=== PATIENT | female | born 1985 | race Caucasian/White ===

== ENCOUNTER 2018-04-23 02:17 | Emergency (ER) | payer BC, SELFPAY ==
[2018-04-23 02:19] VITALS: BP 157/97; PULSE 132; RESP 20; TEMP 36.5; O2SAT 99
[2018-04-23] MEDS: Ibuprofen 600 MG TAB (02:34)
[2018-04-23] MEDS: Acetaminophen 500 MG TAB 1000 MG PO (02:35)
[2018-04-23 02:42] VITALS: PULSE 107
--- NOTE | 2018-04-23 02:51 | W.ED.GENAD ---
Discharge Plan Disposition Patient Disposition: HOME Condition: Good Discharge Details Chief Complaint: Sorethroat Clinical Impression: Acute herpangina Primary Care Provider: Marcos Gunn ED Provider: Gary Hull Home Meds and New Rx's Prescriptions: Continued loratadine 10 mg Tablet 10 mg PO DAILY RF: 0 Discontinued lidocaine HCl [Lidocaine Viscous] 2 % Solution 15 ml MUCOUS MEMBRANE BID-QID PRNRF: 0 Discharge Instructions Additional Instructions: Please stop taking the viscous lidocaine. Please use the Hurricaine spray only as absolutely needed. Maximum would be a short spray every hour as needed for taking pills and drinking fluid. Please drink 8-10 cups of water per day. Please take 1000 mg of Tylenol every 6 hours and 800 mg of ibuprofen every 6 hours if you notice any worsening of your symptoms, or any new symptoms such as vomiting, diarrhea, fever, chills, shortness of breath, chest pain, numbness, weakness, or fainting , please return immediately to the emergency department for reevaluation. Please follow up with your primary care provider as soon as possible for reassessment and reevaluation. As always, it was a pleasure participating in your medical care today. Referrals: Marcos Gunn [Primary Care Provider] - Medical Decision Making This is a pleasant 33-year-old with no significant past medical history who presents with signs and symptoms consistent with herpangina. Patient shows no signs of canker sores, or herpes simplex. No evidence of meningitis. Patient shows no signs of encephalitis, confusion, significant headache or neck pain. No signs of airway compromise. We did use a Hurricaine spray application to her oropharynx and she had notable improvement was able to take her Tylenol and Motrin without difficulty and was able to drink cold water without difficulty. With no signs of significant dehydration, no clinical evidence of airway compromise, perseveres posterior oropharynx swelling, and with her being able to eat and drink well without significant difficulty I do not feel that there is no indication for admission. Recommend continue supportive therapy with maximum dose Tylenol and Motrin, we will give her a Hurricaine spray prescribed from here in the ER, we discussed the importance of limited use for this. I discussed the importance of close follow-up with her PCP and the patient understands. I have extensively reviewed the treatment plan and discharge instructions with the patient. I have addressed all patient concerns at this time. The patient was made aware of what symptoms to monitor for that would warrant a return to the emergency department. Discussed the plan with the patient, they demonstrate verbal understanding and agreement with our assessment and plan at this time. HPI General Date/Time Provider Initiated Documentation: 04/23/18 02:27. HPI Narrative: This is a 33-year-old female with no significant past medical history who presents today for evaluation of sore throat. Patient states that for the last 3 days she has had a mild sore throat. She went to an urgent care in [place] earlier today where she was told she has throat cancersores and was given viscous lidocaine to swish and swallow. She presents tonight because she feels that it is getting slightly worse, and that the lidocaine is not working well and just numbing her tongue. Because of the pain the patient has mild difficulty swallowing and drinking, but is able to get some fluids down. She denies any headache, neck pain, chest pain, shortness of breath, fever, chills, numbness, tingling, weakness. Related Data Home Medications Medication Instructions Recorded Confirmed loratadine 10 mg PO DAILY 04/23/18 04/23/18 Allergies Allergy/AdvReac Type Severity Reaction Status Date / Time Sulfa (Sulfonamide Allergy Unverified 04/23/18 02:22 Antibiotics) General Stated Complaint: Sorethroat PAMELA: 2 Review of Systems Review of Systems All systems reviewed & are unremarkable except as noted in HPI and below [facility] Social History Smoking and Tabacco status: Never Exam Narrative Exam Narrative: 1.Const: Well-nourished, Well-developed, appearing stated age 2.Eyes: PERRL, no conjunctival injection, and symmetrical lids. 3.ENT: Atraumatic external nose and ears. Moist MM. Neck: Symmetric, trachea midline, No thyromegaly. Patient demonstrates pulses in the posterior oropharynx over the soft palate clinically suggestive of herpangina. No significant tonsillar enlargement, uvula is midline. No signs of airway compromise. No evidence of complex spots, no lesions on the tongue or hard palate. Patient demonstrates good movement of cervical neck. There is no nuchal rigidity, no nuchal tenderness. Patient is able to flex the neck without any difficulty or significant pain. Negative Kernig's and Brudzinski sign. 4.CVS: +S1/S2, No murmurs or gallops. Peripheral pulses 2+ and equal in all extremities. Brisk capillary refill in all extremities. 5.RESP: Unlabored respiratory effort. Clear to auscultation bilaterally. No wheezes rales or rhonchi 6.GI: Soft, Nontender/Nondistended, No hepatosplenomegaly. No guarding or rebound. 7.MSK: Normocephalic/Atraumatic, Extremities w/o deformity or ttp No cyanosis or clubbing, Normal movement of all extremities 8.Skin: Warm, Dry. No rashes or lesions. 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 Sensation grossly intact, no focal neurologic deficits. 10.Psych: (AAO) x3. Appropriate mood and affect Course Vital Signs Temperature 36.5 C 04/23/18 02:19 Pulse 132 H 04/23/18 02:19 Respiratory Rate 20 04/23/18 02:19 Blood Pressure 157/97 H 04/23/18 02:19 Pulse Oximetry 99 04/23/18 02:19 Temperature 36.5 C 04/23/18 02:19 Temperature Source Skin 04/23/18 02:19 Pulse 107 H 04/23/18 02:42 Respiratory Rate 20 04/23/18 02:19 Respiratory Effort 04/23/18 02:23 Blood Pressure 157/97 H 04/23/18 02:19 Pulse Oximetry 99 04/23/18 02:19 Oxygen Delivery Method Room Air 04/23/18 02:19 Oxygen Flow Rate 0 04/23/18 02:19
[2018-04-23] MEDS: Benzocaine 20% 60 ML CAN TP (02:52)
== END 2018-04-23 02:56 | disposition home or self-care (01) ==
PROVIDERS: Emergency Provider Student in an Organized Health Care Education/Training Program; PCP Naturopath
DX: B08.5 Enteroviral vesicular pharyngitis
CPT/HCPCS: 99283

== ENCOUNTER 2019-03-17 16:33 | Outpatient (REF) | payer BC, SELFPAY ==
[2019-03-17 22:03] LABS: Abs Immature Grans 0.01 k/cumm (0.0-0.09); Absolute Basophil Count 0.02 k/cumm (0.0-0.2); Absolute Eosinophil Count 0.23 k/cumm (0.0-0.7); Absolute Lymphocyte Count 1.42 k/cumm (1.2-3.4); Absolute Monocyte Count 0.37 k/cumm (0.11-0.7); Absolute Neutrophil Count 6.05 k/cumm (1.2-6.7); Basophils % 0.2; Eosinophils % 2.8; HCT 45.5 % (36.0-46.0); HGB 14.9 g/dL (12.0-15.5); Immature Grans % 0.1 %; Lymphocytes % 17.5; Mean Corp. HGB Concentration 32.7 g/dL (32.0-36.0); Mean Corpuscular Hemoglobin 27.2 pg (27.0-33.0); Mean Platelet Volume 10.8 fL (8.0-11.0); Monocytes % 4.6; Neutrophils % 74.8; Platelet Count 297 x1000/uL (130-400); RBC 5.48 m/cumm (4.00-5.20); RBC Distribution Width 13.8 % (11.7-14.6)
[2019-03-17 22:15] LABS: Iron 29 ug/dL (50-170); Total Iron Binding Capacity 348 ug/dL (250-450); Transferrin Sat 8 % (15-50)
[2019-03-17 22:38] LABS: Vitamin D 25 Total 26.8 ng/ml (30-100)
[2019-03-17 22:45] LABS: ALT 28 U/L (14-59); AST 12 U/L (15-37); Albumin 4.1 g/dL (3.4-5.0); Alkaline Phosphatase 103 U/L (46-116); BUN 11 mg/dL (7-18); Bilirubin, Total 0.2 mg/dL (0.2-1.0); CREATININE 0.75 mg/dL (0.55-1.02); Calcium 9.5 mg/dL (8.5-10.1); Calculated LDL 105 mg/dL; Chloride 104 mmol/L (98-107); Cholesterol 156 mg/dL (<200); Glucose 86 mg/dL (74-106); HDL Cholesterol 32 mg/dL (40-60); Potassium 4.4 mmol/L (3.5-5.1); Sodium 141 mmol/L (136-145); TSH (W/Ref FT4) 1.51 uIU/mL (0.36-3.74); Total Protein 8.2 g/dL (6.4-8.2); Triglyceride 97 mg/dL (<150); Vitamin B12 916 pg/mL (193-986)
== END 2019-03-17 16:53 ==
LOC: NCHCN 16:33
PROVIDERS: PCP Naturopath; Visit Provider Family Medicine
DX: Z00.00 Encounter for general adult medical examination without abnormal findings (principal); E53.8 Deficiency of other specified B group vitamins; E55.9 Vitamin D deficiency, unspecified
CPT/HCPCS: 80053; 80061; 82306; 82607; 83540; 83550; 84443; 85025

== ENCOUNTER 2019-09-29 21:47 | Outpatient (REF) | payer BC, SELFPAY ==
[2019-09-29 21:28] LABS: Abs Immature Grans 0.02 k/cumm (0.0-0.09); Absolute Basophil Count 0.01 k/cumm (0.0-0.2); Absolute Lymphocyte Count 1.79 k/cumm (1.2-3.4); Absolute Monocyte Count 0.69 k/cumm (0.11-0.7); Absolute Neutrophil Count 7.04 k/cumm (1.2-6.7); Basophils % 0.1; Eosinophils % 2.1; HCT 43.5 % (36.0-46.0); HGB 14.4 g/dL (12.0-15.5); Immature Grans % 0.2 %; Lymphocytes % 18.4; Mean Corp. HGB Concentration 33.1 g/dL (32.0-36.0); Mean Corpuscular Hemoglobin 28.7 pg (27.0-33.0); Mean Corpuscular Volume 86.8 fL (80-95); Mean Platelet Volume 10.8 fL (8.0-11.0); Monocytes % 7.1; Neutrophils % 72.1; Platelet Count 361 x1000/uL (130-400); RBC 5.01 m/cumm (4.00-5.20); RBC Distribution Width 13.6 % (11.7-14.6); White Blood Cell Count 9.75 k/cumm (4.4-10.8)
[2019-09-29 21:36] LABS: Iron 47 ug/dL (50-170); Total Iron Binding Capacity 326 ug/dL (250-450); Transferrin Sat 14 % (15-50)
[2019-09-29 21:56] LABS: Vitamin B12 718 pg/mL (193-986)
== END 2019-09-29 22:07 ==
LOC: NCHCN 21:47
PROVIDERS: PCP Naturopath; Visit Provider Nurse Practitioner Family
DX: F31.32 Bipolar disorder, current episode depressed, moderate (principal); D64.9 Anemia, unspecified
CPT/HCPCS: 82607; 83540; 83550; 85025

== ENCOUNTER 2020-02-11 13:15 | Outpatient (REF) | payer BC, SELFPAY ==
[2020-02-11 22:26] LABS: Lithium 0.44 mmol/L (0.60-1.20)
[2020-02-11 23:03] LABS: Albumin 4.1 g/dL (3.4-5.0); Anion Gap 9.4 mmol/L (3-11); BUN 14 mg/dL (7-18); CO2 27.6 mmol/L (21.0-32.0); Calcium 8.9 mg/dL (8.5-10.1); Chloride 104 mmol/L (98-107); Glucose 101 mg/dL (74-106); Potassium 4.2 mmol/L (3.5-5.1); Sodium 141 mmol/L (136-145); TSH 4.39 uIU/mL (0.36-3.74); Vitamin B12 653 pg/mL (193-986)
[2020-02-11 23:27] LABS: PHOSPHORUS 3.3 mg/dL (2.6-4.7)
== END 2020-02-11 13:35 ==
LOC: NCHCN 13:15
PROVIDERS: PCP Naturopath; Visit Provider Family Medicine
DX: F31.32 Bipolar disorder, current episode depressed, moderate (principal); F43.23 Adjustment disorder with mixed anxiety and depressed mood; Z51.81 Encounter for therapeutic drug level monitoring
CPT/HCPCS: 80069; 80178; 82607; 84443

== ENCOUNTER 2020-02-16 20:53 | Outpatient (REF) | payer BC, SELFPAY ==
[2020-02-16 22:16] LABS: Lithium 0.68 mmol/L (0.60-1.20)
== END 2020-02-16 21:13 ==
LOC: NCHCN 20:53
PROVIDERS: PCP Naturopath; Visit Provider Family Medicine
DX: F43.23 Adjustment disorder with mixed anxiety and depressed mood (principal); F31.32 Bipolar disorder, current episode depressed, moderate; Z51.81 Encounter for therapeutic drug level monitoring
CPT/HCPCS: 80178

== ENCOUNTER 2020-04-19 16:28 | Outpatient (REF) | payer OTHER, SELFPAY ==
[2020-04-19 21:15] LABS: Lithium 0.3 mmol/l (0.6-1.2)
[2020-04-19 21:31] LABS: TSH 3.23 uIU/mL (0.36-3.74)
[2020-04-19 21:42] LABS: T4 8.9 ug/mL (4.7-13.3)
[2020-04-20 16:21] LABS: T3,Free 4.4 pg/mL (2.8-5.3)
[2020-04-20 16:39] LABS: T3, Total 168 ng/dL (97-169)
== END 2020-04-19 16:29 | disposition home or self-care (01) ==
LOC: NCHCN 16:28
PROVIDERS: PCP Naturopath; Visit Provider Family Medicine
DX: F31.62 Bipolar disorder, current episode mixed, moderate (principal); Z51.81 Encounter for therapeutic drug level monitoring; R94.6 Abnormal results of thyroid function studies
CPT/HCPCS: 80178; 84436; 84439; 84443; 84480; 84481

== ENCOUNTER 2020-07-14 10:39 | Outpatient (REF) | payer OTHER, SELFPAY ==
[2020-07-14 13:39] LABS: Lithium 0.7 mmol/l (0.6-1.2)
[2020-07-14 14:19] LABS: TSH 2.32 uIU/mL (0.36-3.74); Vitamin B12 763 pg/mL (193-986)
== END 2020-07-14 10:40 | disposition home or self-care (01) ==
LOC: NCHCN 10:39
PROVIDERS: PCP Naturopath; Visit Provider Family Medicine
DX: F31.62 Bipolar disorder, current episode mixed, moderate (principal); Z51.81 Encounter for therapeutic drug level monitoring; F51.05 Insomnia due to other mental disorder; E53.8 Deficiency of other specified B group vitamins; R94.6 Abnormal results of thyroid function studies
CPT/HCPCS: 80178; 82607; 84443

== ENCOUNTER 2020-12-29 14:10 | Outpatient (REF) | payer OTHER, SELFPAY ==
[2020-12-29 21:59] LABS: ALT 24 U/L (14-59); AST 10 U/L (15-37); Albumin 4.5 g/dL (3.4-5.0); Alkaline Phosphatase 91 U/L (46-116); Anion Gap 9.2 mmol/L (3-11); BUN 7 mg/dL (7-18); Bilirubin, Total 0.2 mg/dL (0.2-1.0); CO2 28.8 mmol/L (21.0-32.0); CREATININE 0.8 mg/dL (0.55-1.02); Chloride 105 mmol/L (98-107); Glucose 105 mg/dL (74-106); Potassium 4.6 mmol/L (3.5-5.1); Sodium 143 mmol/L (136-145); TSH 4.39 uIU/mL (0.36-3.74); Total Protein 8.1 g/dL (6.4-8.2)
[2020-12-30 00:37] LABS: Vitamin D 25 Total 25.8 ng/mL (30-100)
[2020-12-30 17:18] LABS: T3,Free 4.1 pg/mL (2.8-5.3)
[2020-12-30 17:35] LABS: T3, Total 207 ng/dL (97-169)
== END 2020-12-29 14:11 | disposition home or self-care (01) ==
LOC: NCHCN 14:10
PROVIDERS: PCP Naturopath; Visit Provider Family Medicine
DX: F31.32 Bipolar disorder, current episode depressed, moderate (principal); Z51.81 Encounter for therapeutic drug level monitoring; Z79.899 Other long term (current) drug therapy
CPT/HCPCS: 80053; 82306; 80178; 83036; 84443; 84480; 84481

== ENCOUNTER 2020-12-31 14:15 | Outpatient (REF) | payer OTHER, SELFPAY ==
[2020-12-31 20:40] LABS: Hemoglobin A1C 4.9 % (<5.7)
== END 2020-12-31 14:16 | disposition home or self-care (01) ==
LOC: NCHCN 14:15
PROVIDERS: PCP Naturopath; Visit Provider Family Medicine
DX: D64.9 Anemia, unspecified (principal); F31.62 Bipolar disorder, current episode mixed, moderate
CPT/HCPCS: 83036

== ENCOUNTER 2021-05-18 18:45 | Outpatient (REF) | payer OTHER, SELFPAY ==
[2021-05-18 22:29] LABS: TSH 2.02 uIU/mL (0.36-3.74)
[2021-05-18 22:38] LABS: Lithium < 0.2 mmol/l (0.6-1.2)
[2021-05-19 18:00] LABS: T3,Free 4.4 pg/mL (2.8-5.3)
== END 2021-05-18 18:46 | disposition home or self-care (01) ==
LOC: NCHCN 18:45
PROVIDERS: PCP Naturopath; Visit Provider Family Medicine
DX: F43.23 Adjustment disorder with mixed anxiety and depressed mood (principal); F31.62 Bipolar disorder, current episode mixed, moderate; L65.9 Nonscarring hair loss, unspecified
CPT/HCPCS: 80178; 84439; 84443; 84481

== ENCOUNTER 2022-06-19 14:47 | Outpatient (CLI) | payer OTHER, SELFPAY ==
--- NOTE | 2022-06-19 14:30 | DI.RAD_ITS ---
Exam(s) XR WRIST LT COMPLETE EXAM: XR WRIST LT COMPLETE CLINICAL HISTORY: left wrist cyst. TECHNIQUE: 2D digital imaging was performed. COMPARISON: No exams were available for comparison FINDINGS: 3 views No evidence of fracture or dislocation nor significant ulnar variance. Scaphoid and scapholunate dis tance normal. Bone density normal. First carpometacarpal joint unremarkable. IMPRESSION: No significant osseous findings in the wrist. DATA REPOSITORY: RADIATION DOSE DELIVERED:
== END 2022-06-19 14:48 | disposition home or self-care (01) ==
LOC: DIORS 14:47
PROVIDERS: PCP Family Medicine; Visit Provider Physician Assistant
DX: M67.432 Ganglion, left wrist (principal)
CPT/HCPCS: 73110

== ENCOUNTER 2022-07-14 00:29 | Outpatient (CLI) | payer OTHER, SELFPAY ==
--- NOTE | 2022-07-14 08:45 | DI.MRI_ITS ---
Exam(s) MR UPPER JOINT LT WO EXAM: MR UPPER JOINT LT WO CLINICAL HISTORY: PAIN,GANGLION CYST LT WRIST,M67.432. TECHNIQUE: Multiplanar multisequence MRI was performed. COMPARISON: Plain films 19 June 2022 FINDINGS: BONES: There is no fracture or contusion pattern. JOINTS: The radiocarpal joint is unremarkable. The carpal joints are unremarkable. Small amount of fluid seen at the fusiform triquetrum joint. TENDONS: Flexors: Unremarkable. Extensors: Unremarkable. MUSCLES: Unremarkable. MEDIAN NERVE: Unremarkable on this noncontrast examination. SOFT TISSUES: Small multiloculated ganglion cyst seen posterior to the lunate and proximal capitate m easuring roughly 13 by 3 by 11 millimeters. LIGAMENTS: Unremarkable. TRIANGULAR FIBROCARTILAGE: Unremarkable. OTHER: IMPRESSION: Small posterior ganglion cyst. DATA REPOSITORY:
== END 2022-07-14 00:49 ==
LOC: DI 00:29
PROVIDERS: PCP Family Medicine; Visit Provider Student in an Organized Health Care Education/Training Program
DX: M67.432 Ganglion, left wrist (principal)
CPT/HCPCS: 73221

== ENCOUNTER 2022-10-04 17:46 | Outpatient (REF) | payer OTHER, SELFPAY ==
[2022-10-04 21:19] LABS: ESR 33 mm/hr (0-20)
[2022-10-04 21:21] LABS: HGB 12.7 g/dL (11.2-15.7); MCH 24.4 pg (27.0-33.0); MCV 79 fL (80-95); MPV 10.5 fL (8.0-11.0); Platelet Count 364 10^3/uL (130-400); RDW-SD 42.8 fL; WBC 6.65 10^3/uL (4.4-10.8)
[2022-10-04 21:44] LABS: ALT 25 U/L (14-59); AST 16 U/L (15-37); Albumin 4.3 g/dL (3.4-5.0); Alkaline Phosphatase 123 U/L (46-116); Anion Gap 12.1 mmol/L (3-11); BUN 6 mg/dL (7-18); Bilirubin, Total 0.3 mg/dL (0.2-1.0); CO2 23.9 mmol/L (21.0-32.0); CREATININE 0.8 mg/dL (0.55-1.02); Calcium 9.2 mg/dL (8.5-10.1); Chloride 104 mmol/L (98-107); Estimated GFR 97.87 (mL/min/1.73m2); Ferritin 7 ng/mL (8-252); Glucose 84 mg/dL (74-106); Potassium 4.1 mmol/L (3.5-5.1); Sodium 140 mmol/L (136-145); Total Protein 8.3 g/dL (6.4-8.2)
[2022-10-04 22:14] LABS: Iron 21 ug/dL (50-170)
== END 2022-10-04 17:47 | disposition home or self-care (01) ==
LOC: NCHCN 17:46
PROVIDERS: PCP Family Medicine; Visit Provider Family Medicine
DX: K52.9 Noninfective gastroenteritis and colitis, unspecified; E61.1 Iron deficiency
CPT/HCPCS: 80053; 85027; 85652; 82728; 83540

== ENCOUNTER 2023-01-08 14:49 | Outpatient (REF) | payer OTHER, SELFPAY ==
[2023-01-08 21:30] LABS: HCT 40.3 % (36.0-46.0); HGB 12.8 g/dL (11.2-15.7); MCH 25.2 pg (27.0-33.0); MCHC 31.8 % (32.0-36.0); MCV 79 fL (80-95); MPV 10.7 fL (8.0-11.0); Platelet Count 301 10^3/uL (130-400); RBC 5.08 10^6/uL (3.93-5.22); RDW 17.1 % (11.7-14.6); RDW-SD 49.3 fL; WBC 7.64 10^3/uL (4.4-10.8)
[2023-01-08 21:40] LABS: C-Reactive Protein 1.15 mg/dL (0.0-0.3)
[2023-01-08 21:43] LABS: Iron 75 ug/dL (50-170)
== END 2023-01-08 14:50 | disposition home or self-care (01) ==
LOC: NCHCN 14:49
PROVIDERS: PCP Family Medicine; Visit Provider Family Medicine
DX: F31.62 Bipolar disorder, current episode mixed, moderate (principal); D64.9 Anemia, unspecified; E53.8 Deficiency of other specified B group vitamins; E55.9 Vitamin D deficiency, unspecified; E61.1 Iron deficiency; E66.9 Obesity, unspecified
CPT/HCPCS: 85027; 83540; 86140

== ENCOUNTER 2023-07-10 12:58 | Outpatient (REF) | payer OTHER, SELFPAY ==
[2023-07-10 14:47] LABS: Abs Immature Grans 0.02 10^3/uL (0.0-0.06); Absolute Basophil Count 0.03 10^3/uL (0.0-0.2); Absolute Eosinophil Count 0.14 10^3/uL (0.0-0.7); Absolute Lymphocyte Count 2.01 10^3/uL (1.2-3.4); Absolute Monocyte Count 0.45 10^3/uL (0.1-0.8); Absolute Neutrophil Count 4.49 10^3/uL (1.2-6.7); Basophils % 0.4 %; HCT 43.7 % (36.0-46.0); Immature Grans % 0.3 %; Lymphocytes % 28.2 %; MCH 27.7 pg (27.0-33.0); MCV 86 fL (80-95); MPV 10.1 fL (8.0-11.0); Monocytes % 6.3 %; Neutrophils % 62.8 %; Platelet Count 320 10^3/uL (130-400); RBC 5.06 10^6/uL (3.93-5.22); RDW 14.2 % (11.7-14.6); RDW-SD 44.4 fL; WBC 7.14 10^3/uL (4.4-10.8)
[2023-07-10 15:23] LABS: Hemoglobin A1C 5.5 % (<5.7)
[2023-07-10 15:39] LABS: Vitamin D 25 Total 17.8 ng/mL (30-100)
[2023-07-10 15:53] LABS: Anion Gap 9.9 mmol/L (3-11); BUN 9 mg/dL (7-18); CO2 27.1 mmol/L (21.0-32.0); CREATININE 0.8 mg/dL (0.55-1.02); Calculated LDL 122 mg/dL (<100); Chloride 108 mmol/L (98-107); Cholesterol 187 mg/dL (<200); Estimated GFR 97.26 (mL/min/1.73m2); FREE T4 1.04 ng/dL (0.76-1.46); Glucose 88 mg/dL (74-106); HDL Cholesterol 33 mg/dL (40-60); Potassium 4.4 mmol/L (3.5-5.1); Sodium 145 mmol/L (136-145); Triglyceride 164 mg/dL (<150); Vitamin B12 569 pg/mL (193-986)
[2023-07-10 16:13] LABS: C-Reactive Protein 1.01 mg/dL (<or=0.5)
== END 2023-07-10 12:59 | disposition home or self-care (01) ==
LOC: NCHCN 12:58
PROVIDERS: PCP Family Medicine; Visit Provider Family Medicine
DX: F43.23 Adjustment disorder with mixed anxiety and depressed mood (principal); F31.60 Bipolar disorder, current episode mixed, unspecified; E53.9 Vitamin B deficiency, unspecified; E55.9 Vitamin D deficiency, unspecified
CPT/HCPCS: 80048; 80061; 82306; 82607; 83036; 84439; 84443; 85025; 86140

== ENCOUNTER 2023-07-12 01:23 | Outpatient (CLI) | payer OTHER, SELFPAY ==
[2023-07-12] MEDS: Levalbuterol HFA 15 GM INH 4 PUFF IH (15:52)
[2023-07-12] MEDS: Inhaler, Assist Device 1 EACH MC (15:53)
--- NOTE | 2023-07-13 13:20 | W.PFT ---
Date of service: 07/12/23 Time of Service: 14:56 Pulmonary Function Test Result Indications: Dyspnea Interpretation Spirometry: There is no airflow limitation.No bronchodilator response. Lung Volumes: Normal lung volumes Diffusion Capacity: Normal diffusion Airway Pressure: Normal airways resistance Impression Normal pulmonary function testing Clinical Correlation therefore is recommended.
== END 2023-07-12 01:24 | disposition home or self-care (01) ==
LOC: RT 01:23
PROVIDERS: PCP Family Medicine; Visit Provider Family Medicine
DX: R06.00 Dyspnea, unspecified (principal)
CPT/HCPCS: 94060; 94726; 94729

== ENCOUNTER 2023-10-08 18:37 | Outpatient (REF) | payer OTHER, SELFPAY ==
[2023-10-08 16:17] LABS: HCT 42.2 % (36.0-46.0); HGB 13.8 g/dL (11.2-15.7); MCH 27.6 pg (27.0-33.0); MCHC 32.7 % (32.0-36.0); MCV 84 fL (80-95); MPV 10.9 fL (8.0-11.0); Platelet Count 281 10^3/uL (130-400); RDW 12.9 % (11.7-14.6); RDW-SD 39.5 fL; WBC 8.43 10^3/uL (4.4-10.8)
[2023-10-08 17:21] LABS: ALT 41 U/L (14-59); AST 19 U/L (15-37); Albumin 3.9 g/dL (3.4-5.0); Alkaline Phosphatase 99 U/L (46-116); Anion Gap 8.9 mmol/L (3-11); BUN 11 mg/dL (7-18); Bilirubin, Total 0.35 mg/dL (0.2-1.0); CO2 27.1 mmol/L (21.0-32.0); CREATININE 0.7 mg/dL (0.55-1.02); Calculated LDL 116 mg/dL (<100); Chloride 106 mmol/L (98-107); Cholesterol 178 mg/dL (<200); Estimated GFR 114.16 (mL/min/1.73m2); Glucose 89 mg/dL (74-106); HDL Cholesterol 35 mg/dL (40-60); Potassium 4.1 mmol/L (3.5-5.1); Sodium 142 mmol/L (136-145); Total Protein 7.7 g/dL (6.4-8.2); Triglyceride 137 mg/dL (<150); Vitamin D 25 Total 37.2 ng/mL (30-100)
[2023-10-08 18:55] LABS: Calcium 9.2 mg/dL (8.5-10.1)
[2023-10-08 19:24] LABS: Iron 75 ug/dL (50-170)
[2023-10-09 18:19] LABS: Hemoglobin A1C 5.2 % (<5.7)
== END 2023-10-08 18:38 | disposition home or self-care (01) ==
LOC: NCHCN 18:37
PROVIDERS: PCP Family Medicine; Visit Provider Family Medicine
DX: Z00.00 Encounter for general adult medical examination without abnormal findings (principal); D64.9 Anemia, unspecified; E61.1 Iron deficiency; E55.9 Vitamin D deficiency, unspecified; Z13.220 Encounter for screening for lipoid disorders; Z13.1 Encounter for screening for diabetes mellitus
CPT/HCPCS: 80053; 80061; 82306; 85027; 83036; 83540

== ENCOUNTER 2023-11-14 03:47 | Outpatient (CLI) | payer OTHER, SELFPAY ==
[2023-11-14 17:33] LABS: FREE T4 0.89 ng/dL (0.76-1.46); TSH 1.18 uIU/Ml (0.36-3.74)
== END 2023-11-14 03:48 | disposition home or self-care (01) ==
PROVIDERS: PCP Family Medicine; Referring Provider Nurse Practitioner Family; Visit Provider Nurse Practitioner Family
DX: F31.0 Bipolar disorder, current episode hypomanic (principal); F42.2 Mixed obsessional thoughts and acts; F43.12 Post-traumatic stress disorder, chronic; G47.00 Insomnia, unspecified; R94.6 Abnormal results of thyroid function studies
CPT/HCPCS: 36415; 84439; 84443

== ENCOUNTER 2024-03-27 04:08 | Outpatient (CLI) | payer OTHER, SELFPAY ==
[2024-03-27 13:36] LABS: Abs Immature Grans 0.03 10^3/uL (0.0-0.06); Absolute Basophil Count 0.02 10^3/uL (0.0-0.2); Absolute Eosinophil Count 0.14 10^3/uL (0.0-0.7); Absolute Lymphocyte Count 1.98 10^3/uL (1.2-3.4); Absolute Monocyte Count 0.55 10^3/uL (0.1-0.8); Absolute Neutrophil Count 5.35 10^3/uL (1.2-6.7); Basophils % 0.2 %; Eosinophils % 1.7 %; HCT 42.5 % (36.0-46.0); HGB 13.4 g/dL (11.2-15.7); Immature Grans % 0.4 %; Lymphocytes % 24.5 %; MCHC 31.5 % (32.0-36.0); MCV 82 fL (80-95); MPV 10.1 fL (8.0-11.0); Monocytes % 6.8 %; Neutrophils % 66.4 %; Platelet Count 290 10^3/uL (130-400); RBC 5.16 10^6/uL (3.93-5.22); RDW 13.6 % (11.7-14.6); RDW-SD 39.9 fL; WBC 8.07 10^3/uL (4.4-10.8)
[2024-03-27 13:39] LABS: ESR 40 mm/hr (0-20)
[2024-03-27 14:08] LABS: FREE T4 0.93 ng/dL (0.76-1.46); TSH 2.33 uIU/mL (0.36-3.74)
[2024-03-27 14:10] LABS: Ferritin 8 ng/mL (8-252)
[2024-03-27 14:45] LABS: Iron 31 ug/dL (50-170); Total Iron Binding Capacity 335 ug/dL (250-450); Transferrin Sat 9 % (15-50)
[2024-03-31 13:14] LABS: Zinc, S 99 mcg/dL (60-106)
== END 2024-03-27 04:09 | disposition home or self-care (01) ==
PROVIDERS: Nurse Practitioner Family; PCP Family Medicine; Visit Provider Family Medicine
DX: K52.9 Noninfective gastroenteritis and colitis, unspecified (principal); F31.0 Bipolar disorder, current episode hypomanic; F42.8 Other obsessive-compulsive disorder; F43.12 Post-traumatic stress disorder, chronic; G47.09 Other insomnia; R94.6 Abnormal results of thyroid function studies
CPT/HCPCS: 36415; 84630; 85652; 82728; 83540; 83550; 83735; 84439; 84443; 85025

== ENCOUNTER 2024-06-27 22:53 | Outpatient (REF) | payer OTHER, SELFPAY ==
[2024-06-27 21:23] LABS: ESR 21 mm/hr (0-20)
[2024-06-27 21:27] LABS: HGB 13.3 g/dL (11.2-15.7); MCH 26.1 pg (27.0-33.0); MCHC 32.4 % (32.0-36.0); MCV 81 fL (80-95); MPV 11.6 fL (8.0-11.0); Platelet Count 207 10^3/uL (130-400); RBC 5.09 10^6/uL (3.93-5.22); RDW 14.8 % (11.7-14.6); RDW-SD 43.3 fL; WBC 6.47 10^3/uL (4.4-10.8)
[2024-06-27 21:55] LABS: ALT 27 U/L (14-59); AST 15 U/L (15-37); Albumin 3.9 g/dL (3.4-5.0); Alkaline Phosphatase 102 U/L (46-116); Anion Gap 11.4 mmol/L (3-11); BUN 11 mg/dL (7-18); Bilirubin, Total 0.2 mg/dL (0.2-1.0); C-Reactive Protein < 0.50 mg/dL (<or=0.5); CO2 23.6 mmol/L (21.0-32.0); CREATININE 0.8 mg/dL (0.55-1.02); Calcium 8.9 mg/dL (8.5-10.1); Chloride 108 mmol/L (98-107); Estimated GFR 96.66 (mL/min/1.73m2); Glucose 94 mg/dL (74-106); Potassium 3.9 mmol/L (3.5-5.1); Sodium 143 mmol/L (136-145); TSH (W/Ref FT4) 1.66 uIU/mL (0.36-3.74); Total Protein 7.5 g/dL (6.4-8.2)
== END 2024-06-27 22:54 | disposition home or self-care (01) ==
LOC: NCHCN 22:53
PROVIDERS: PCP Family Medicine; Visit Provider Family Medicine
DX: M54.2 Cervicalgia (principal)
CPT/HCPCS: 80053; 85027; 85652; 84443; 86140

== ENCOUNTER 2024-07-14 02:24 | Outpatient (CLI) | payer OTHER, SELFPAY ==
--- NOTE | 2024-07-14 15:01 | DI.RAD_ITS ---
Exam(s) XR CERVICAL SPINE COMP 4-5V EXAM: XR CERVICAL SPINE COMP 4-5V CLINICAL HISTORY: NECK PAIN, M54.2. TECHNIQUE: 2D digital imaging was performed. COMPARISON: No exams were available for comparison FINDINGS: Six views No evidence of fracture, listhesis, nor offset of the spinal laminar line. There is mild disc space narrowing at C 4-5 level an on the oblique views there are small bilateral Luschka joint osteophytes at this level. C5-6 and C6-7 levels appear unremarkable. There are no cervical ribs. No osseous le sions. Facet joints unremarkable IMPRESSION: Evidence of some degenerative disc disease at C4-5 level as described above. If clinically indicated can be further studied with MRI DATA REPOSITORY: RADIATION DOSE DELIVERED:
== END 2024-07-14 02:44 ==
LOC: DI 02:25
PROVIDERS: PCP Family Medicine; Visit Provider Family Medicine
DX: M50.021 Cervical disc disorder at C4-C5 level with myelopathy (principal)
CPT/HCPCS: 72050

== ENCOUNTER 2024-11-18 15:11 | Outpatient (REF) | payer OTHER, SELFPAY ==
[2024-11-18 16:37] LABS: Abs Immature Grans 0.02 10^3/uL (0.0-0.06); HCT 43.4 % (36.0-46.0); HGB 13.8 g/dL (11.2-15.7); Immature Grans % 0.2 %; MCH 26.8 pg (27.0-33.0); MCHC 31.8 % (32.0-36.0); MCV 84 fL (80-95); MPV 11.4 fL (8.0-11.0); Platelet Count 252 10^3/uL (130-400); RBC 5.15 10^6/uL (3.93-5.22); RDW 14.6 % (11.7-14.6); RDW-SD 44.3 fL; WBC 8.72 10^3/uL (4.4-10.8)
[2024-11-18 16:56] LABS: Iron 39 ug/dL (50-170); Total Iron Binding Capacity 346 ug/dL (250-450); Transferrin Sat 11 % (15-50)
[2024-11-18 17:07] LABS: ALT 33 U/L (14-59); AST 16 U/L (15-37); Albumin 4.0 g/dL (3.4-5.0); Alkaline Phosphatase 104 U/L (46-116); Anion Gap 8.5 mmol/L (3-11); BUN 13 mg/dL (7-18); Bilirubin, Total 0.3 mg/dL (0.2-1.0); CO2 27.5 mmol/L (21.0-32.0); Calcium 9.3 mg/dL (8.5-10.1); Calculated LDL 122 mg/dL (<100); Chloride 108 mmol/L (98-107); Cholesterol 185 mg/dL (<200); Estimated GFR 113.46 (mL/min/1.73m2); Ferritin 10 ng/mL (8-252); Glucose 92 mg/dL (74-106); HDL Cholesterol 34 mg/dL (>or=50); Potassium 3.8 mmol/L (3.5-5.1); Sodium 144 mmol/L (136-145); Total Protein 7.6 g/dL (6.4-8.2); Triglyceride 149 mg/dL (<150)
[2024-11-18 17:16] LABS: C-Reactive Protein < 0.50 mg/dL (<or=0.5)
[2024-11-18 22:48] LABS: ESR 21 mm/hr (0-20)
== END 2024-11-18 15:12 | disposition home or self-care (01) ==
LOC: NCHCN 15:11
PROVIDERS: PCP Family Medicine; Visit Provider Family Medicine
DX: Z00.00 Encounter for general adult medical examination without abnormal findings (principal)
CPT/HCPCS: 80053; 80061; 85652; 82728; 83540; 83550; 85025; 86140

== ENCOUNTER 2025-02-06 10:19 | Outpatient (REF) | payer OTHER, SELFPAY ==
[2025-02-06 16:01] LABS: HCT 43.8 % (36.0-46.0); HGB 14.5 g/dL (11.2-15.7); MCH 28.4 pg (27.0-33.0); MCHC 33.1 % (32.0-36.0); MCV 86 fL (80-95); MPV 10.9 fL (8.0-11.0); Platelet Count 266 10^3/uL (130-400); RBC 5.10 10^6/uL (3.93-5.22); RDW 14.1 % (11.7-14.6); RDW-SD 44.2 fL; WBC 9.92 10^3/uL (4.4-10.8)
[2025-02-06 16:37] LABS: ALT 30 U/L (10-49); AST 23 U/L (<34); Albumin 4.3 g/dL (3.2-5.0); Alkaline Phosphatase 104 U/L (46-116); Anion Gap 9.2 mmol/L (3-11); BUN 13 mg/dL (9-23); Bilirubin, Total 0.40 mg/dL (0.2-1.2); CO2 26.8 mmol/L (20.0-31.0); Calcium 8.9 mg/dL (8.3-10.6); Chloride 105 mmol/L (98-107); Glucose 82 mg/dL (74-106); Potassium 3.9 mmol/L (3.5-5.1); Sodium 141 mmol/L (136-145); Total Protein 7.5 g/dL (5.7-8.2)
[2025-02-06 16:41] LABS: Ferritin 10 ng/mL (7-271); Vitamin B12 407 pg/mL (211-911)
== END 2025-02-06 10:20 | disposition home or self-care (01) ==
LOC: NCHCN 10:19
PROVIDERS: PCP Family Medicine; Visit Provider Family Medicine
DX: D64.9 Anemia, unspecified (principal); M62.81 Muscle weakness (generalized); R20.2 Paresthesia of skin
CPT/HCPCS: 80053; 85027; 82607; 82728